=== PATIENT | female | born 1985 | race Caucasian/White ===

== ENCOUNTER 2022-07-30 06:01 | Observation (INO) ==
--- NOTE | 2022-07-11 12:41 | PAT Medication Instructions ---
Medication Instructions Date of Service July 11, 2022 Home Medications duloxetine 30 mg capsule,delayed release (Cymbalta) 30 mg PO QAM duloxetine 60 mg capsule,delayed release (Cymbalta) 60 mg PO QAM fremanezumab-vfrm 225 mg/1.5 mL subcutaneous syringe (Ajovy Syringe) 225 mg subcut Q3M onabotulinumtoxinA 100 unit solution for injection (Botox) 1 unit subcut Q3M propranolol 160 mg capsule,24 hr,extended release 80 mg PO BID topiramate 50 mg tablet (Topamax) 75 mg PO BID Continue as directed fremanezumab-vfrm 225 mg/1.5 mL subcutaneous syringe (Ajovy Syringe) 225 mg subcut Q3M onabotulinumtoxinA 100 unit solution for injection (Botox) 1 unit subcut Q3M Take morning of surgery With a small sip of water, OTHERWISE NOTHING TO EAT OR DRINK AFTER MIDNIGHT: duloxetine 30 mg capsule,delayed release (Cymbalta) 30 mg PO QAM duloxetine 60 mg capsule,delayed release (Cymbalta) 60 mg PO QAM propranolol 160 mg capsule,24 hr,extended release 80 mg PO BID topiramate 50 mg tablet (Topamax) 75 mg PO BID Take evening before surgery propranolol 160 mg capsule,24 hr,extended release 80 mg PO BID topiramate 50 mg tablet (Topamax) 75 mg PO BID Other Notes If you have any questions please call us at [phone] or [phone] or [phone] or [phone]
--- NOTE | 2022-07-16 12:18 | Anesthesiology Consultation ---
Date of Service July 16, 2022 Assessment & Plan (1) Encounter for pre-operative examination: Chart Review Chart Review: Acceptable Risk for Surgery and Patient seen in Pre Admission Testing Teaching & Discussion Pre-Anesthesia Teaching/Discussion Notes: Instructed NPO after midnight before surgery, except medications with 15 cc of water. Medication instructions provided according to the PAT guidelines. History Surgery Operation Date: 07/30/22 12:35 Proposed Procedures p C4-C6 Anterior Cervical Discectomy and Fusion Spinal Cord Monitoring - Shakir Lowe DO Height/Weight Height: 5 ft 2 in Weight: 95.254 kg Allergies Allergy/AdvReac Type Severity Reaction Status Date / Time No Known Allergies Allergy Verified 07/11/22 10:04 Medications Home Medications Medication Instructions Recorded Confirmed Last Taken duloxetine 30 mg capsule,delayed 30 mg PO QAM 07/11/22 07/11/22 Unknown release (Cymbalta) duloxetine 60 mg capsule,delayed 60 mg PO QAM 07/11/22 07/11/22 Unknown release (Cymbalta) fremanezumab-vfrm 225 mg/1.5 mL 225 mg subcut Q3M migraines 07/11/22 07/11/22 Unknown subcutaneous syringe (Ajovy Syringe) onabotulinumtoxinA 100 unit 1 unit subcut Q3M migraines 07/11/22 07/11/22 Unknown solution for injection (Botox) propranolol 160 mg capsule,24 80 mg PO BID 07/11/22 07/11/22 Unknown hr,extended release topiramate 50 mg tablet (Topamax) 75 mg PO BID 07/11/22 07/11/22 Unknown Past Medical History Medical History Anxiety Cervical herniated disc Cervical spinal stenosis Depression GERD (gastroesophageal reflux disease) occasionally. no current medications. History of COVID-19 10/2020 asymptomatic. History of Helicobacter pylori infection x3 - most recently dx 2013. Hx of gastric ulcer Migraine follows with [facility] Neurology. Patient denies h/o stroke, seizures, heart attack, heart failure, DM, HTN, blood clots or blood transfusions. Exercise / Class Metabolic Activity II 4-5 Yardwork/Stairs/Walk up hill (denies chest discomfort or shortness of breath with 1 FOS) Past Family History Family History Daughter Family history of reaction to anesthesia becomes "very agitated" Past Surgical History Surgical History H/O vaginal hysterectomy History of appendectomy History of esophagogastroduodenoscopy (EGD) S/P epidural steroid injection cervical Past Anesthesia History No Hx of Anesthesia Complications and Other (daughter requiring respiratory support "needed breathing treatment and monitoring" denies re-intubation) History of PONV No Hx of PONV and No Hx of Motion Sickness Social History Smoking Status: Never smoker Do You Dip or Chew Tobacco: No Hx Alcohol Use: No Hx Substance Use: No substance use type: does not use Review of Systems Rare snoring, denies witnessed apneas. Patient denies chest pain, shortness of breath, dyspnea on exertion, fever, chills, cough, wheezing, or palpitations. Physical Exam Vital Signs Vitals BP 112/80 P 59 TEMP 98.5 SP02 98% on RA RESP 18 Physical Limited cervical extension range of motion TMD 3.5 finger breadths Mallampati Score 2 Dentition: crown, denies chipped or loose teeth, crowns, implants or bridges Lungs: normal respiratory effort. Good air movement, clear throughout to auscultation, no adventitious breath sounds Cardiac: regular rate and rhythm, no murmurs noted Carotid arteries: negative bruit bilat Lab Results Anesthesia Preop Results Results Anesthesia Widget: WBC 6.63 K/ul (4.8-10.8) 07/16/22 Hgb 12.9 g/dl (12.0-16.0) 07/16/22 Hct 38.2 % (37.0-47.0) 07/16/22 Plt 230 K/uL (130-400) 07/16/22 Na 139 mmol/L (136-145) 07/16/22 K 4.4 mmol/L (3.5-5.1) 07/16/22 Cl 110 mmol/L (98-107) H 07/16/22 CO2 24 mmol/L (21-32) 07/16/22 BUN 13 mg/dl (6-23) 07/16/22 Creat 0.89 mg/dl (0.6-1.2) 07/16/22 Glucose Level 88 mg/dl (70-99(Fasting)) 07/16/22 PT 10.7 Seconds (9.0-12.0) 07/16/22 PTT 27.3 Seconds (21.0-31.0) 07/16/22 INR 1.0 (0.9-1.1) 07/16/22 Urine Color Yellow 07/16/22 Urine Appearance Clear (Clear) 07/16/22 Urine pH 7.0 (4.5-7.5) 07/16/22 Urine Specific [place] 1.007 (1.000-1.030) 07/16/22 Urine Protein Negative (Negative) 07/16/22 Urine Glucose (UA) Negative (Negative) 07/16/22 Urine Ketones Negative (Negative) 07/16/22 Urine Blood Negative (Negative) 07/16/22 Urine Nitrite Negative (Negative) 07/16/22 Urine Bilirubin Negative (Negative) 07/16/22 Urine Urobilinogen Negative (Negative) 07/16/22 Urine Leukocyte Esterase Negative (Negative) 07/16/22 Blood Type A Positive 07/16/22 Antibody Screen NEGATIVE 07/16/22 Testing Electrocardiogram Date: 07/16/22 Sinus bradycardia, rate 57 bpm RSR' or QR pattern in V1 suggests right ventricular conduction delay Chest X-Ray Date: 07/16/22 No acute process COVID-19 Risk Screen Screening Information COVID-19 Screen Date: 07/16/22 Exposure 21 Days Family/Household +COVID Last 21 Days: No Exposure 10 Days Any COVID Exposure Last 10 Days: No Symptoms Last 10 Days Experienced COVID Sx Last 10 Days: No + COVID 0-90 Days COVID + in Last 0-90 Days: No
[~2022-07-30 06:01] MED LIST: ACETAMINOPHEN 500 MG TAB PO SCH; CeleBREX 200 MG CAP PO SCH; GABAPENTIN 900 MG DOSE PO SCH; LR 15ML/HR IV SCH; ceFAZolin 2000MG 2,000 MG/15 ML SYR IV SCH
[2022-07-30] MEDS ORDERED: ATROPINE SULFATE 0.1 MG/ML 10ML SYR IV PRN (06:55)
[2022-07-30] MEDS ORDERED: PROMETHAZINE HCL 6.25 MG in SODIUM CHLORIDE 0.9% 50 ML IV PRN (06:55)
[2022-07-30] MEDS ORDERED: HYDROmorphone INJ 1 MG/ML SYRINGE IV PRN (06:55)
[2022-07-30] MEDS ORDERED: ePHEDrine sulfate 50 MG/ML AMP IV PRN (06:55)
[2022-07-30] MEDS ORDERED: ONDANSETRON INJ 2 MG/ML 2 ML VIAL IV PRN ×2 (06:55→11:16)
[2022-07-30] MEDS ORDERED: ONDANSETRON INJ 2 MG/ML 2 ML VIAL ONE (07:03)
[2022-07-30] MEDS ORDERED: LIDOCAINE 2% 2 ML VIAL/AMP(20MG/ML) INFIL ONE (07:03)
[2022-07-30] MEDS ORDERED: DEXAMETHASONE SOD INJ 4 MG/ML VIAL ONE (07:03)
[2022-07-30] MEDS ORDERED: PROPOFOL IV EMULSION 10 MG/ML 20 ML VIAL IV ONE (07:03)
[2022-07-30] MEDS ORDERED: fentaNYL citrate PF 100 MCG/2 ML VIAL ONE (07:04)
[2022-07-30] MEDS ORDERED: MIDAZOLAM HCL 1 MG/ML 2ML VIAL ONE (07:04)
[2022-07-30] MEDS ORDERED: HYDROmorphone INJ 2 MG/ML SYR/VIAL ONE (07:07)
[2022-07-30] MEDS ORDERED: ceFAZolin 330 MG/ML 1 GM VIAL ONE (07:09)
--- NOTE | 2022-07-30 07:34 | History & Physical Bridge Note ---
Date of Service July 30, 2022 History & Physical Bridge Note I have examined the patient, reviewed the History & Physical and in the interval since the performance of the History & Physical I have noted the following changes of clinical significance: no changes noted
--- NOTE | 2022-07-30 07:37 | History & Physical Report ---
Date of Service July 30, 2022 Assessment & Plan (1) Cervical spinal stenosis: Plan: C4-C6 anterior cervical discectomy and fusion Plan C4-C6 anterior cervical discectomy and fusion History of Present Illness Chief Complaint: Neck and arm pain Primary Care Provider: Jace Sharpe MD This is a 36-year-old female who presents with chronic persistent neck and arm pain after failing to extensive course of nonoperative care is here for surgical intervention. Allergies Allergy/AdvReac Type Severity Reaction Status Date / Time No Known Allergies Allergy Verified 07/30/22 06:40 Home Medications Medication Instructions Recorded Confirmed Type duloxetine 30 mg capsule,delayed 30 mg PO QAM 07/11/22 07/30/22 History release (Cymbalta) duloxetine 60 mg capsule,delayed 60 mg PO QAM 07/11/22 07/30/22 History release (Cymbalta) fremanezumab-vfrm 225 mg/1.5 mL 225 mg subcut Q3M migraines 07/11/22 07/30/22 History subcutaneous syringe (Ajovy Syringe) onabotulinumtoxinA 100 unit 1 unit subcut Q3M migraines 07/11/22 07/30/22 History solution for injection (Botox) propranolol 160 mg capsule,24 80 mg PO BID 07/11/22 07/30/22 History hr,extended release topiramate 50 mg tablet (Topamax) 75 mg PO BID 07/11/22 07/30/22 History Past Med/Surg History Medical History (Updated 07/30/22 @ 07:36 by Shakir Lowe DO) Anxiety Cervical herniated disc Cervical spinal stenosis Depression GERD (gastroesophageal reflux disease) occasionally. no current medications. History of COVID-19 10/2020 asymptomatic. History of Helicobacter pylori infection x3 - most recently dx 2013. Hx of gastric ulcer Migraine follows with [facility] Neurology. Surgical History H/O vaginal hysterectomy History of appendectomy History of esophagogastroduodenoscopy (EGD) S/P epidural steroid injection cervical Family History Daughter Family history of reaction to anesthesia becomes "very agitated" Social History Smoking Status: Never smoker Second Hand Exposure: No; Do You Dip or Chew Tobacco: No; Tobacco Cessation Education Requested by Patient: No Hx Alcohol Use: No Hx Substance Use: No Preferred Language: Kyrgyz Communication Ability: Effective Xerox Machine Operator Required: No Beliefs That Will Affect Care: None Current Living Situation: Family Current Living Situation Comment: x3 children Other Information That Helps Us Care for You: No Feels Safe at Home: Yes Safety Concerns: Feels Safe At This Time Assistive Devices: Glasses Physical Exam Physical Exam: Patient is alert and oriented Heart regular rhythm Lungs clear Results & Data Results & Data Vital Signs (Past 12 Hours) Vital Signs Temp Pulse Resp BP Pulse Ox O2 Del Method 07/30/22 06:42 36.5 C 65 18 95/70 L 96 Room Air
[2022-07-30] MEDS ORDERED: SUGAMMADEX SODIUM 200 MG/2 ML VIAL IV ONE (08:24)
[2022-07-30] MEDS ORDERED: FLOSEAL HEMOSTATIC MATRIX 10ML TOP ONE (09:00)
--- NOTE | 2022-07-30 09:10 | Operative Report ---
Post Operative Report Pre & Post Diagnosis Operation Date: 07/30/22 07:45 Pre-Op Diagnosis: Cervical disc herniation with radiculopathy Postoperative diagnosis: Same I identified the patient and participated in the time-out.: Yes Procedure Operation Date: 07/30/22 07:45 Actual Procedures 1. Intracerebral discectomy with bilateral foraminotomies C4-C5 C5-C6. #2 anterior cervical arthrodesis C4-C5 C5-C6. #3 placement of Spira 7 mm cage at C4-C5 and C5-C6. #4 application of K2 M plate and screws from C4-C6. Surgeon Shakir Lowe, Maintenance Carpenter rickie gillis Estimated Blood Loss 10 Findings Consistent with Post-Op Diagnosis Specimens none Indications This is a 36-year-old female who presents above-mentioned diagnosis after failing extensive course of nonoperative care is here for surgical intervention. Description of Procedure Patient was met with identified informed consent obtained. Patient was then taken to the operative suite underwent patient placed in supine position the Jaciel table head Perez lateral. All bony prominences well-padded eyes inspected to ensure no external pressure placed upon the. This point the anterior cervical spine was prepped and draped in a sterile fashion. With the assistance of fluoroscopy identified the C5 vertebral body and a transverse inci cj was placed along the right anterior aspect of the cervical spine overlying his region. Blunt dissection with assistance of bipolar electrocautery was then performed down to and exposing the anterior cervical spine from C4-C6. Self- retaining retractors placed. Then performed a complete discectomy of C4-C5 out to the uncovertebral joints bilaterally. [place] distracting pins were utilized to assist in visualization. Removed all posterior annular fibers longitudinal ligament bilateral foraminotomies were performed addressing severe neuroforaminal disease. Endplates were then burred to subcortically bone and a 7 mm Spira cage with I factor tapped into position. Then proceeded to C5-C6 again complete discectomy performed out to the uncovertebral joints bilaterally. [place] distracting pins again utilized. Removed all posterior annular fibers longitudinal limit bilateral foraminotomies performed to address severe neuroforaminal disease. Endplates burred to subcortically bone and a 7 mm Spira cage with I factor tapped in position. Distracting apparatus was removed and a K2 M plate and screws applied with the assistance of fluoroscopy. The incision was then copiously irrigated explored to ensure no damage to surrounding structures or remaining bleeding. 10 round GIOVANA drain inserted. The incision was then closed with 2 Vicryl to fascia and 4 Monocryl for final skin closure. Steri-Strips sterile dressing placed. Patient awakened taken PACU stable condition. Please note spinal cord monitoring was utilized at the procedure no changes noted. Lastly Rickie Gillis was present at the entire surgery and while the patient positioning complex portions of the surgery and final skin closure. I attest to the content of the Intraoperative Record and any orders documented therein. Any exceptions are noted below.
--- NOTE | 2022-07-30 09:44 | Fluoroscopy Report ---
FL cervical 2-3V CLINICAL HISTORY: C4-C6 ACDF TECHNIQUE: 2 views were obtained with the C-arm in the OR with the above procedure. Total fluoroscopy time was 12.7 seconds. Radiation dose was 0.95 mGy. Comparison: None available at the time of this dictation. FINDINGS/IMPRESSION: Intraoperative images were obtained of ACDF placement. Please correlate with intraoperative fluoroscopy and operative report. ACT 112: Negative or not required by law. Electronically signed by: Stephen Chew M.D. 07/30/2022 9:43 AM
[2022-07-30] MEDS: fentaNYL citrate PF 100 MCG/2 ML VIAL IV PRN ×2 (10:26→10:31)
[2022-07-30] MEDS ORDERED: ROCURONIUM BROMIDE 10 MG/ML 5 ML VIAL IV ONE (10:48)
[2022-07-30] MEDS ORDERED: LORazepam 2 MG/1 ML VIAL IV PRN (11:16)
[2022-07-30] MEDS ORDERED: SOD PHOSPHATE/SOD BIPHOSPHATE ENEMA 132 ML BTL PR PRN (11:16)
[2022-07-30] MEDS ORDERED: ACETAMINOPHEN 1,000 MG/100 ML VIAL IV PRN (11:16)
[2022-07-30] MEDS ORDERED: DO NOT ADMINISTER PNEUMOCOCCAL VACCINE PRN (11:16)
[2022-07-30] MEDS ORDERED: METOCLOPRAMIDE HCL INJ 5 MG/ML 2 ML VIAL IV PRN (11:16)
[2022-07-30] MEDS ORDERED: NALOXONE HCL 0.4 MG/1 ML VIAL/CARP IV PRN (11:16)
[2022-07-30] MEDS ORDERED: diphenhydrAMINE Capsule 25 MG CAP PO PRN (11:16)
[2022-07-30] MEDS ORDERED: RACEPINEPHRINE 2.25% NEBU SOLN 0.5 ML VIAL INH PRN (11:16)
[2022-07-30] MEDS ORDERED: FREMANEZUMAB VFRM 225 MG/1.5 ML SQ SCH (11:16)
[2022-07-30] MEDS ORDERED: MAGNESIUM HYDROXIDE SUSP 30 ML UDC PO PRN (11:16)
[2022-07-30] MEDS ORDERED: hydrOXYzine HCl 25 MG TAB PO PRN (11:16)
[2022-07-30] MEDS ORDERED: ONDANSETRON 4 MG OD TAB PO PRN (11:16)
[2022-07-30] MEDS ORDERED: HYDROmorphone INJ 0.5 MG/0.5 ML SYR IV PRN (11:16)
[2022-07-30] MEDS ORDERED: dexAMETHasone 8 MG in SYRINGE 0 ML IV PRN (11:16)
[2022-07-30] MEDS ORDERED: DO NOT ADMINISTER FLU VACCINE PRN (11:16)
[2022-07-30] MEDS ORDERED: ACETAMINOPHEN 500 MG TAB PO PRN (11:16)
[2022-07-30] MEDS ORDERED: ALUMINUM/MAGNESIUM SUSP 30 ML UDC PO PRN (11:16)
[2022-07-30] MEDS ORDERED: PROMETHAZINE HCL 12.5 MG in SODIUM CHLORIDE 0.9% 50 ML IV PRN (11:16)
[2022-07-30] MEDS ORDERED: bisacodyL 10 MG SUPP PR PRN (11:16)
[2022-07-30] MEDS ORDERED: FAMOTIDINE 20 MG TAB PO PRN (11:16)
[2022-07-30] MEDS: LORazepam 0.5 MG TAB PO PRN ×2 (12:09→20:13)
[2022-07-30] MEDS: oxyCODONE HCL IR 5 MG TAB (IMMEDIATE RELEASE) PO PRN ×2 (13:09→22:20)
[2022-07-30] MEDS: LACTATED RINGER'S 1,000 ML IV SCH ×2 (14:34→20:16)
[2022-07-30] MEDS: ceFAZolin 2000MG 2,000 MG/15 ML SYR IV SCH ×2 (15:13→22:20)
--- NOTE | 2022-07-30 15:28 | Anesthesiology Progress Note ---
Date of Service July 30, 2022 Anesthesia Post Procedure Vital Signs Vital Signs: Temp Pulse Pulse Resp BP Pulse Ox O2 Del Method 07/30/22 14:38 81 16 95 Nasal Cannula 07/30/22 14:00 36.7 C 83 18 126/87 95 Room Air 07/30/22 12:55 36.6 C 94 H 106/72 95 Nasal Cannula 07/30/22 12:00 80 16 124/85 98 Nasal Cannula 07/30/22 11:43 73 16 99 Nasal Cannula 07/30/22 11:28 35.6 C L 81 16 114/77 99 Nasal Cannula 07/30/22 10:59 36.7 C 87 16 112/77 98 Nasal Cannula 07/30/22 10:25 36.5 C 65 12 141/91 H 98 Nasal Cannula 07/30/22 10:15 83 19 127/77 98 Nasal Cannula 07/30/22 10:05 78 22 118/75 100 Nasal Cannula 07/30/22 09:55 68 16 123/85 97 Nasal Cannula 07/30/22 09:45 77 15 114/73 95 Nasal Cannula 07/30/22 09:35 68 14 112/72 98 Oxymask 07/30/22 09:28 36.0 C L 84 21 101/80 97 Oxymask 07/30/22 06:42 36.5 C 65 18 95/70 L 96 Room Air O2 Flow Rate 07/30/22 14:38 2 07/30/22 14:00 07/30/22 12:55 2 07/30/22 12:00 07/30/22 11:43 2 07/30/22 11:28 2 07/30/22 10:59 2 07/30/22 10:25 2 07/30/22 10:15 2 07/30/22 10:05 2 07/30/22 09:55 2 07/30/22 09:45 2 07/30/22 09:35 10 07/30/22 09:28 10 07/30/22 06:42 Pain Intensity Neck: Pain Intensity: 6 Right Arm: Pain Intensity: 4 Posterior Neck: Pain Intensity: 9 Transfer of Care Handoff Completed per policy Notes Mental Status: alert / awake / arousable and participated in evaluation Patient Amnestic to Procedure: Yes Nausea / Vomiting: adequately controlled Pain: adequately controlled Airway Patency, RR, SpO2: stable & adequate BP & HR: stable & adequate Hydration State: stable & adequate Anesthetic Complications: no major complications apparent and Pt Satisfied with anesthetic care
[2022-07-30] MEDS: HYDROmorphone INJ 1 MG/ML SYRINGE IV PRN ×2 (16:42→19:34)
[2022-07-30] MEDS: TOPIRAMATE 25 MG TAB PO SCH (20:13)
[2022-07-30] MEDS: PROPRANOLOL HCL LA 80 MG CAPCR PO SCH (20:13)
[2022-07-30] MEDS ORDERED: DOCUSATE SODIUM/SENNA 50/8.6MG TAB PO SCH (21:00)
[2022-07-31] MEDS: HYDROmorphone INJ 1 MG/ML SYRINGE IV PRN ×2 (00:01→04:15)
[2022-07-31] MEDS: LACTATED RINGER'S 1,000 ML IV SCH (02:42)
[2022-07-31] MEDS: LORazepam 0.5 MG TAB PO PRN (04:15)
[2022-07-31] MEDS: traMADol HCL 50 MG TABLET PO PRN ×2 (06:00→10:22)
[2022-07-31] MEDS ORDERED: POLYETHYLENE (MIRALAX) 17 GM PACK PO SCH (06:00)
[2022-07-31] MEDS: PROPRANOLOL HCL LA 80 MG CAPCR PO SCH (08:09)
[2022-07-31] MEDS: TOPIRAMATE 25 MG TAB PO SCH (08:09)
[2022-07-31] MEDS ORDERED: DULoxetine HCL 30 MG CAP PO SCH (09:00)
[2022-07-31] MEDS ORDERED: DULoxetine HCL 60 MG CAP PO SCH (09:00)
[2022-07-31] MEDS ORDERED: dexAMETHasone 6 MG in SYRINGE 0 ML IV SCH (09:00)
--- NOTE | 2022-07-31 11:44 | Discharge Summary ---
Date of Service July 31, 2022 Admission HPI Per Admitting Provider This is a 36-year-old female who presents with chronic persistent neck and arm pain after failing to extensive course of nonoperative care is here for surgical intervention. Principal Diagnosis Cervical disc herniation with radiculopathy Discharge Data Allergies Allergy/AdvReac Type Severity Reaction Status Date / Time No Known Allergies Allergy Verified 07/30/22 06:40 Procedures Performed Operation Date: 07/30/22 07:45 Actual Procedures p C4-C6 Anterior Cervical Discectomy and Fusion, Spinal Cord Monitoring(Not Applicable) - Shakir Lowe DO Ordered Studies 07/30/22 07:00 FL cervical 2-3V Routine Hospital Course (1) Cervical spinal stenosis: Patient underwent anterior cervical discectomy and fusion tolerated this well was taken to orthopedic for postoperative. Postop day 1 she was up and ambulating swallowing well. No hoarseness. Excellent strength testing. Arm symptoms markedly improved and the GIOVANA drain decreasing appropriately. Subsequent discharge home. Discharge orders instructions from the chart for further review. Total Time Total Time Spent Total Time Spent (In Minutes): 20 minutes Discharge Plan Discharge Items Patient Disposition: Home - Self-Care Reason For Visit: Spinal Stenosis, Cervical Region Discharge Diagnosis: Cervical radiculopathy Activity: As commented below Non-emergency contact: Primary Care Provider Call non-emergency contact if: you have any medication questions Follow-up/Referrals: Jace Sharpe MD [Primary Care Provider] - Diet: Regular Addtl Attending Provider Instructions: ACTIVITY RECOMMENDATIONS: SELF CARE INSTRUCTIONS AFTER CERVICAL FUSIONS 1. No smoking. Smoking drastically decreases the chance of a solid fusion. 2. No bending, lifting more than 5 pounds, or twisting (roll like a log when turning in bed). 3. You may shower 3 days after surgery. Thoroughly dry wound. Do not soak in the tub. 4. Cervical collar: Must be worn at all times including sleeping. You may remove the brace only to bath, eat and if you are sitting in a recliner. 5. Please walk as much as you can for exercise. Gradually increase the distance that you walk as your endurance increases. SPECIAL CARE INSTRUCTIONS: VERY IMPORTANT TO READ AND REVIEW A. Do not take any anti-inflammatory medications (i.e. Indocin, Advil, Aspirin, Naprosyn, Aleve, Motrin, etc.) as these may inhibit the chance of a solid fusion. Tylenol is okay to take. B. Your surgical incision has been closed with a cosmetic suture under the skin that will dissolve in about 6 weeks. In 14 days, you can use a pair of clean scissors and cut the suture that is left outside of the skin at the ends of your incision. C. Complications are uncommon, but please contact us if you have any signs or symptoms of: 1. wound infection (fever higher than 102.5 degrees F, redness, separation of wound, drainage, or increasing pain from the incision) 2. blood clots in legs (pain, swelling, redness and warmth in legs) 3. urinary tract infection (fever higher than 102.5 degrees, burning upon urination or increased frequency of urination) 4. nerve problems (inability to walk on your toes or heels, numbness, loss of bowel or bladder control) 5. any other symptoms that concern you. D. Please call the office at if you have any concerns or questions about your operation or recovery. MANAGING PAIN AFTER SPINAL SURGERY 1. Narcotic medication is intended for short-term use and will be provided for surgical pain. Surgical pain usually lasts for a period of 4-6 weeks. Narcotic medication includes Percocet, Vicodin, Darvocet, Tylenol #3 or Lortab. 2. Longer-term pain is more appropriately treated with non-narcotic medication such as Tylenol ES. 3. Muscle spasm is not appropriately treated with narcotics. Muscle relaxers such as Soma, Flexeril or Skelaxin can be used along with Tylenol ES. 4. Remember that we all live with some "aches and pains". This is not unusual or uncommon after an injury or as we get older. 5. We will provide appropriate medication within the normal guidelines of their prescribed use. We will also be very cautious and aware of potential abuse and extended duration of patients' medication needs. 6. Please allow 2-3 days to process refills. Prescriptions will not be mailed but must be picked up at the office. FOLLOW UP VISIT: Keep your scheduled follow-up appointment. Any questions, please call the office at . Pending Studies at Discharge: No Stand-Alone Forms: [facility], Smoking Cessation Medications and DC Order Prescriptions: New tramadol 50 mg tablet 50 mg PO Q6H PRN (Reason: pain, moderate) Qty: 30 0RF oxycodone 5 mg tablet 5 mg PO Q6H PRN (Reason: pain) Qty: 30 0RF Continued propranolol 160 mg Capsule,Extended Release 24 Hr 80 mg PO BID Botox 100 unit Recon Soln 1 unit subcut Q3M topiramate [Topamax] 50 mg Tablet 75 mg PO BID duloxetine [Cymbalta] 30 mg Capsule,Delayed Release(Dr/Ec) 30 mg PO QAM duloxetine [Cymbalta] 60 mg Capsule,Delayed Release(Dr/Ec) 60 mg PO QAM Ajovy Syringe 225 mg/1.5 mL Syringe 225 mg SUBCUT Q3M Discharge Orders: Discharge Order (Routine); Ordered 07/31/22 Ordered By: Shakir Lowe Admission Data Admit Date/Time: 07/30/22 09:13 Attending Provider: Shakir Lowe Admit Provider: Shakir Lowe Primary Care Provider: Jace Sharpe Other Interventions: Discharge Summary Assessment (RN) Last Done: 07/31/22 10:28
== END 2022-07-31 13:26 | disposition home or self-care (01) ==
LOC: 3E 06:01 → ASU 06:01